=== PATIENT | male | born 2005 | race Caucasian/White ===

== ENCOUNTER 2023-08-26 20:13 | Emergency (ER) | payer BC ==
[~2023-08-26] VITALS: Ht 172.7 cm; Wt 77.1 kg
[2023-08-26 20:17] VITALS: BP_SYST 147; PULSE 67; RESP 18; TEMP 98.7; O2SAT 100
[2023-08-26] MEDS ORDERED: BACITRACIN ZINC 15 GM TOPICAL OINTMENT TP ONE (20:30)
[2023-08-26] MEDS: ONDANSETRON HCL 4 MG/2 ML VIAL IVP ONE (20:32)
[2023-08-26] MEDS: NACL 0.9% 1,000 ML IV ONE (20:32)
[2023-08-26] MEDS: MORPHINE 2 MG/ML INJ. SYRINGE IVP ONE (20:36)
[2023-08-26] MEDS: KETOROLAC TROMETHAMINE 30 MG VIAL IVP ONE (20:37)
[2023-08-26 20:55] LABS: CALCIUM 9.2 mg/dL (8.4-11.0); CREATININE 1.22 mg/dL (0.55-1.30); POTASSIUM 3.4 mmol/L (3.5-5.1)
[2023-08-26 21:00] LABS: ALBUMIN 3.9 g/dL (3.4-4.8); BASOPHILS % (AUTO) 0.1 % (0.0-2.0); EOSINOPHILS % (AUTO) 0.2 % (0.0-4.0); HEMATOCRIT 45.8 % (36-54); HEMOGLOBIN 15.3 g/dL (14.0-18.0); LYMPHOCYTES # (AUTO) 0.9 K/uL (1.0-5.5); LYMPHOCYTES % (AUTO) 6.5 % (20.5-51.5); MEAN CORPUSCULAR HEMOGLOBIN 29 pg (27-31); MEAN CORPUSCULAR HGB CONC 34 % (32-36); MEAN CORPUSCULAR VOLUME 87 fL (79.0-98.0); MONOCYTES # (AUTO) 0.7 K/uL (0.0-1.0); MONOCYTES % (AUTO) 4.7 % (1.7-9.3); NEUTROPHILS # (AUTO) 12.7 K/uL (1.8-7.7); NEUTROPHILS % (AUTO) 88.5 % (40.0-70.0); PLATELET COUNT (AUTO) 248 K/uL (130-430); RED BLOOD CELL COUNT(AUTO) 5.25 MIL/uL (4.2-6.2); RED CELL DISTRIBUTION WIDTH 12.9 % (9.0-15.0); TOTAL BILIRUBIN 0.5 mg/dL (0.0-1.0); TOTAL PROTEIN, SERUM 7.2 g/dL (6.4-8.3); WHITE BLOOD COUNT (AUTO) 14.3 K/uL (4.5-11.0)
[2023-08-26] MEDS ORDERED: BACITRACIN 1 GM OINT TP ONE (21:00)
[2023-08-26] MEDS ORDERED: HYDR-3927 PO (21:56)
[2023-08-26] MEDS ORDERED: ONDA-8 TL (21:56)
[2023-08-26] MEDS ORDERED: IBUP-1971 PO (21:56)
[2023-08-26] MEDS ORDERED: MORPHINE 2 MG/ML INJ. SYRINGE IVP ONE (22:15)
[2023-08-26 22:57] VITALS: BP_SYST 147; PULSE 67; RESP 18; TEMP 98.7; O2SAT 100
== END 2023-08-26 22:57 | disposition home or self-care (01) ==
LOC: SED 20:13
DX: S52.022A Displaced fracture of olecranon process without intraarticular extension of left ulna, initial encounter for closed fracture (principal); F07.81 Postconcussional syndrome; Z79.899 Other long term (current) drug therapy; V18.0XXA Pedal cycle driver injured in noncollision transport accident in nontraffic accident, initial encounter; Y93.89 Activity, other specified; Y92.89 Other specified places as the place of occurrence of the external cause; Y99.8 Other external cause status
CPT/HCPCS: 99285; 70450; 96374; 29105; 96375; 96361; 80053; 85025; 36415; 73080; 73560; 70486; 76376; J1885; J2405; J2270; J7030